=== PATIENT | male | born 1935 | race Caucasian/White ===

== ENCOUNTER → 2023-03-29 10:32 | Outpatient (BNVA) | payer MEDICARE, SELFPAY | PROVIDERS: Family Provider Family Medicine; Visit Provider Specialist | DX: M17.11 Unilateral primary osteoarthritis, right knee (principal) | CPT/HCPCS: 73560; 73565 ==

== ENCOUNTER 2023-04-12 06:03 | Outpatient (CLI) | payer OTHER, SELFPAY ==
--- NOTE | 2023-04-12 07:15 | MR_ITS ---
WS: [id number] MRI RIGHT KNEE HISTORY: right knee pain COMPARISON: Radiographs 03/29/2023 Anterior cruciate ligament: Anterior fibers of the ACL are intact. Posterior fibers are not as well v isualized. Partial tear not excluded. Posterior cruciate ligament: Intact. There is a double PCL sign which is often seen with tear of the ACL. Majority of the ACL is intact. This could be a loose meniscal fragment. Less likely partial tear of the PCL. Medial collateral ligament: Mildly displaced from the joint line. Posterior lateral corner structures: Displacement joint line by the extruded meniscus and osteophytes . Mild increase signal in the fibular collateral ligament. Medial menisci: Abnormal signal in the posterior horn extends to the intra-articular surface. Suspect horizontal tear with blunting of the free edge. Effectively limited by motion artifact. Lateral meniscus: No identifiable posterior horn. Increased signal throughout the anterior horn. Extensor mechanism: Distal quadriceps tendon and patellar tendons are intact. Fluid and soft tissue: Large suprapatellar joint effusion. Mild soft tissue edema. Small Chamberlain's cyst . Osseous and articular structures: Patellofemoral compartment: Minimal chondromalacia medial patellar facet. Medial compartment: Moderate to severe narrowing of the medial compartment with near diffuse loss of cartilage. Meniscal extrusion of the joint space. No fracture or marrow edema. Lateral compartment: Severe narrowing with mild lateral subluxation of the tibial plateau. Loss of ca rtilage with small osteophytes. 5 mm osteochondral lesion. Posterior to the distal PCL is a heterogeneous collection measuring 1.6 cm. These may be small loose bodies or soft tissue calcifications. These are external to the joint. MR/MR knee RT wo con* [id number] IMPRESSION: 1. Quality of this examination is significantly degraded by motion. 2. Moderate to severe medial compartment narrowing with near diffuse loss of c artilage. 3. Severe osteoarthritis lateral compartment. 4. Majority of the ACL is intact. Anterior fibers are normal. Poorly visualize d posterior fibers. Partial tear not excluded. 5. Low signal adjacent to the PCL. Meniscal fragment or partial ACL tear shoul d be considered. 6. Horizontal tear posterior horn medial meniscus. 7. Absent posterior horn lateral meniscus. 8. Large suprapatellar joint effusion and diffuse soft tissue edema.
== END 2023-04-12 06:04 | disposition home or self-care (01) ==
PROVIDERS: Visit Provider Specialist
DX: M94.8X6 Other specified disorders of cartilage, lower leg (principal); M17.11 Unilateral primary osteoarthritis, right knee; S83.241A Other tear of medial meniscus, current injury, right knee, initial encounter; M25.461 Effusion, right knee; X58.XXXA Exposure to other specified factors, initial encounter
CPT/HCPCS: 73721